=== PATIENT | male | born 1980 | race Caucasian/White ===

== ENCOUNTER 2022-08-13 06:21 | Day surgery (SDC) | payer BC, SELFPAY ==
[2022-08-13] VITALS (7 sets, daily range): BP systolic 119–140; BP diastolic 75–85; PULSE 69–75; RESP 16; TEMP 36.2–36.9; O2SAT 93–98; BMI 28.5
[2022-08-13] MEDS: LACTATED RINGERS 1000 ML 1,000 ML 100 ML IV (07:00)
--- NOTE | 2022-08-13 07:29 | PM.GSPRC ---
Operative Note Date of procedure: 08/13/22 Pre-op diagnosis: 1. Symptomatic umbilical hernia. Post-op diagnosis: 1. Incarcerated umbilical hernia containing preperitoneal fat. Type of Procedure: 1. Open umbilical hernia repair without mesh. Indications: 42-year-old male was seen in clinic for evaluation of an umbilical bulge that was noticed several years ago. Patient describes sensation of pain and discomfort with certain movements. He denied any episodes of incarceration. Patient desired to have his umbilical hernia repaired. On clinical exam he had a small umbilical bulge at the superior aspect of the umbilicus. This was reducible. Patient had discomfort with reducing this bulge. Given patient's clinical symptoms and his desire for surgical repair, an open umbilical hernia repair was recommended. The procedure was discussed in detail. The risks associated procedure including infection, bleeding, injury to intra-abdominal organs, and hernia recurrence were all discussed with the patient, and he agreed to proceed. Procedure Description: After discussing the risks and benefits of the procedure, the patient signed informed consent.? The operative site was marked and the patient was brought to the operating room and placed on the operating table in supine position.? Care was taken to pad the patient's pressure points.?? The patient was then intubated by anesthesia.?? The operative site was then prepped and draped in the usual sterile fashion.? A time-out was then performed. Local anesthetic was injected at the surgical site. A curvilinear skin incision was made with a scalpel just below umbilicus. Subcutaneous tissue was dissected with electrocautery down to the hernia sac and anterior fascia. The hernia sac was dissected off of the anterior fascia and subcutaneous fat around the fascial defect was dissected away from the fascial defect with cautery. the fascial defect was only 7 mm. The fascia surrounding the defect was strong. I elected to repair this primarily with interrupted 0-0 Nurolon stitches. Additional local anesthetic was injected into subcutaneous tissues. An umbilicus was tacked down with interrupted 3-0 Vicryl stitches. Subdermal layer was closed with interrupted sutures using 3-0 Vicryl. Skin was closed with 4-0 Monocryl using subcuticular stitch. Steri strips were applied over the incision. I then placed a folded sterile 2 x 2 and 4x4 gauze over the incision and covered it with tape. All counts were correct at the end of the case. Patient tolerated the procedure well and was transferred to PACU without any complications. Findings: 7 mm fascial defect with strong surrounding fascia. This was repaired without mesh. Anesthesia: GETA Surgeon: Jonah Manzo MD Estimated blood loss (mL): 1 Condition: stable Disposition: PACU
[2022-08-13] MEDS: CEFAZOLIN 2 GM INJ IVP (07:35)
[2022-08-13] MEDS: BUPIVACAINE 0.25% 30 ML INJECTION (07:43)
--- NOTE | 2022-08-13 07:46 | W.ANESCHARGE ---
Anesthesia Charges Start Date/Time Anesthesia Start Date: 08/13/22 Anesthesia Start Time: 07:27 Stop Date/Time Anesthesia Stop Date: 08/13/22 Anesthesia Stop Time: 08:28
--- NOTE | 2022-08-13 08:27 | W.ANESCHARGE ---
Anesthesia Charges Start Date/Time Anesthesia Start Date: 08/13/22 Anesthesia Start Time: 07:27 Stop Date/Time Anesthesia Stop Date: 08/13/22 Anesthesia Stop Time: 08:28
--- NOTE | 2022-08-13 09:04 | SUR.PHASEII ---
Pt alert and orientated. Asking to go home. Denies pain, Declines food. in room.
== END 2022-08-13 09:25 | disposition home or self-care (01) ==
PROVIDERS: PCP Family Medicine; Visit Provider Surgery
PROC: (CPT 49592; principal; 2022-08-13 07:30)
DX: K42.0 Umbilical hernia with obstruction, without gangrene (principal)
CPT/HCPCS: 49592; 00750; 00830; J0330; J0690; J1100; J1885; J2405; J2704; J3010; J3490; J7120

== ENCOUNTER 2024-06-29 12:08 | Emergency (ER) | payer BC, SELFPAY ==
--- OUTSIDE RECORDS SUMMARY | 2024-06-29 12:10 | XMS_ITS | Clinical Summary ---
Author Organization [facility] Address [address] [place] [address] Care Team Providers Care Automation Machine Operator Name Role Phone Shoaib Olivares MD Primary Care Provider Allergies No known active allergies Medications No known medications Active Problems Problem Noted Date Diagnosed Date Prediabetes 03/07/2022 Hyperlipidemia 03/06/2022 Family history of colon cancer 03/06/2022 Overview (07/10/2022): Colonoscopy 07/2022 hyperplastic polyp, repeat in 5 years Resolved Problems Problem Noted Date Diagnosed Date Resolved Date Migraine 03/11/2014 03/06/2022 Immunizations Name Administration Dates Next Due COVID-19 VACCINE SPIKEVAX (M ODERNA 50MCG/0.5ML) 12YO+ PFS 01/29/2024 COVID-19 vaccine (LivemochaBio NTech 30mcg/0.3mL) PFMDV 08/14/2020,07/19/2020 INFLUENZA, IIV3 PF (AGE >= 6 MO) 01/29/2024 Influenza RIV4 (Age 18+ Year s) PRESERV FREE 02/07/2023 Influenza, IIV3 (Age 6-35 mos) 03/11/2014,2012 Influenza, IIV4 03/22/2022,,03/10/2020, 019,02/14/2018,02/18/2017 Tdap 09/21/2017,01/11/2006 Family History Medical History Relation Name Comments Other Father neurodegenerati ve disorder Cancer Mother uterine Cancer-colon Mother Heart Disease Neg. 1 Diabetes Neg. 2 Cancer-prostate Neg. 3 Anesthesia Problem No Family History Relation Name Status Comments Father Alive Mother Alive Neg. 1 Neg. 2 Neg. 3 Social History Tobacco Use Types Packs/Day Years Used Date Smoking Tobacco: Never Smokeless Tobacco: Never Tobacco Cessation:Counseling Given: No Alcohol Use Standard Drinks/Week Comments Yes 0 (1 standard drink = 0.6 oz pur e alcohol) occasional PHQ-2 Answer Date Recorded PHQ-2 TOTAL SCORE 0 01/29/2024 Social Connections Answer Date Recorded Do you often feel lonely or isolated from those around you? 0 01/29/2024 Financial Resource Strain Answer Date R ecorded Difficulty of Paying Living Expenses 3 01/29/2024 Difficulty of Paying Living Expenses Not on file 01/29/2024 Food Insecurity Answer Date Recorded Do you worry your food will run out before you are able to buy more? 1 01/29/2024 Transportation Needs Answer Date Record ed Does lack of transportation keep you from medica l appointments? 1 01/29/2024 Does lack of transportation keep you from work, meetings or getting things that you need? 1 01/29/2024 Housing Stability Answer Date Recorded What is your housing situation today? 1 01/29/2024 Utilities Answer Date Recorded Do you have trouble paying f or utilities (for example, heat, electricity, water, phone)? 1 01/29/2024 Sex and Gender Information Value Date Recorded Sex Assigned at Not on file Legal Sex Male 5:40 AM BREAST BUFFER Gender Identity Not on file Sexual Orientation Not on file Obstetrics History Last Filed Vital Signs Vital Sign Reading Time Taken Comments Blood Pressure 132/84 01/29/2024 9:16 AM CDT Pulse 75 01/29/2024 9:16 AM CDT Temperature 36.9 C (98.5 F) 06/26/2019 1:01 PM BREAST BUFFER Respiratory Rate 16 07/06/2022 8:40 AM BREAST BUFFER Oxygen Saturation 97% 01/29/2024 9:16 AM CDT Inhaled Oxygen Concentration - - Weight 98.9 kg (218 lb) 01/29/2024 9:16 AM CDT Height 185.4 cm (6' 1) 01/29/2024 9:16 AM CDT Body Mass Index 28.76 01/29/2024 9:16 AM CDT Plan of Treatment Health Maintenance Due Date Last Done Comments BMI (ht and wt on same day) for age 18+ 01/28/2025 01/29/2024, 08/09/2022, 03/06/2022, Additional history exists Depression screening for age 12+ 01/28/2025 01/29/2024, 03/06/2022, 03/06/2022, Additional history exists Colonoscopy through age 75 07/07/202707/06, 07/06/2022, 07/06/2022 Tetanus booster 09/22/2027 09/21/2017, 01/11/2006 Lipids for age 35-44 01/28/2029 01/29/2024, 03/06/2022, 05/08/2019, Additional history exists Tdap Completed 09/21/2017, 01/11/2006 Hepatitis C screening for age 18-79 Completed 03/06/2022 COVID-19 vaccine series Completed 01/29/20 24, 02/07/2023, 03/03/2022, Additional history exists HIV for age 15-65 Completed 01/29/2024 Influenza for age 9-49 Completed 4, 02/07/2023, 03/22/2022, Additional history exists Pneumococcal series for age 6-49 Aged Out No longer eligible based on patient's age to complete this topic Procedures Procedure Name Priority Date/Time Associated Diagnosis Comments HIV 1/2 ANTIGEN/ANTIBODY FOURTH GENERATION W/RFL ([facility]) Routine 01/29/2024 10:13 AM CDT Screening for HIV (human immunodeficiency virus) LIPID PANEL W REFLEX MEASURED LDL Routine 01/29/2024 10:13 AM CDT Hyperlipidemia, unspecified hyperlipidemia type COLONOSCOPY SCREENING Routine 07/06/2022 7:32 AM BREAST BUFFER Family history of colon cancer ANTI HCV Routine 03/06/2022 9:40 AM CDT Need for hepatitis C screening test from Last 3 Months or Most Recently Relevant to Health Maintenance Results * HIV 1/2 ANTIGEN/ANTIBODY FOURTH GENERATION W/RFL ([facility]) (01/29/2024 10:13 AM CDT) HIV AG/AB, 4TH GEN NON-REACT JOSI NON-REACT JOSI [facility] Comment: HIV-1 antigen and HIV-1/HIV-2 antibodies were not detected. There is no laboratory evidence of HIV infection. PLEASE NOTE: This information has been disclosed to you from records whose confidentiality may be protected by state law. If your state requires such protection, then the state law prohibits you from making any further disclosure of the information without the specific written consent of the person to whom it pertains, or as otherwise permitted by law. A general authorization for the release of medical or other information is NOT sufficient for this purpose. For additional information please refer to http://education.Gazelle/faq/UNY945 (This link is being provided for informational/ educational purposes only.) The performance of this assay has not been clinically validated in patients less than 2 years old. Blood BLOOD SPECIMEN / Unknown 01/29/2024 10:13 AM CDT 01/29/2024 10:14 AM CDT Shoaib Olivares MD SEND OUTS Final Result [facility] [address] [place] [address], [facility] [address] [place] [address] * (ABNORMAL) LIPID PANEL W REFLEX MEASURED LDL (01/29/2024 10:13 AM CDT) CHOLESTEROL, TOTAL 291(H) <200 mg/dL [facility] HDL CHOLESTEROL 66 > OR = 40 mg/dL [facility] TRIGLYCERIDES 114 <150 mg/dL [facility] LDL-CHOLESTEROL 200(H) mg/dL (calc) [facility] Comment: LDL-C levels > or = 190 mg/dL may indicate familial hypercholesterolemia (FH). Clinical assessment and measurement of blood lipid levels should be considered for all first degree relatives of patients with an FH diagnosis. LDL Cholesterol (LDL-C) levels > or = 300 mg/dL may indicate homozygous familial hypercholesterolemia (HoFH). Untreated, these extremely high LDL-C levels can result in premature CV events and mortality. Patients should be identified early and provided appropriate interventions to reduce the cumulative LDL-C burden from . For questions about testing for familial hypercholesterolemia, please call [facility] at [phone].INFO. Maximilian Toribio, et al. J National Lipid Association Recommendations for Patient-Centered Management of Dyslipidemia: Part 1 Journal of Clinical Lipidology 2015;9(2), 129-169. Heather Eubanks. et al. (2014). Homozygous familial hypercholesterolaemia: new insights and guidance for clinicians to improve detection and clinical management. Heart Journal, 35(32), 0579-7793. Reference range: <100 Desirable range <100 mg/dL for primary prevention; <70 mg/dL for patients with CHD or diabetic patients with > or = 2 CHD risk factors. LDL-C is now calculated using the Сергей-Tj calculation, which is a validated novel method providing better accuracy than the Friedewald equation in the estimation of LDL-C. Сергей JARQUIN et al. HERLINDA. 2013;310(19): 0148-9661 (http://education.American Scientific Resources/faq/YVO750) CHOL/HDLC RATIO 4.4 <5.0 (calc) [facility] NON HDL CHOLESTEROL 225(H) <130 mg/dL (calc) [facility] Comment: Non-HDL level > or = 220 is very high and may indicate genetic familial hypercholesterolemia (FH). Clinical assessment and measurement of blood lipid levels should be considered for all first-degree relatives of patients with an FH diagnosis. For patients with diabetes plus 1 major ASCVD risk factor, treating to a non-HDL-C goal of <100 mg/dL (LDL-C of <70 mg/dL) is considered a therapeutic option. Blood BLOOD SPECIMEN / Unknown 01/29/2024 10:13 AM CDT 01/29/2024 10:14 AM CDT us Shoaib Olivares MD CHEMISTRY Final Result [facility] [address] [place] [address], [facility] [address] [facility] [place] [address] * COLONOSCOPY (07/06/2022 7:39 AM BREAST BUFFER) 07/06/2022 7:39 AM BREAST BUFFER Narrative Transcriptions Сергей Mcgee MD - 07/06/2022 8:35 AM CST Patient Name: Vasyl Cuellar Procedure Date: 07/06/2022 Gender: Male Date of : 1980 Admit Type: Outpatient Procedure: Colonoscopy Proceduralist: Сергей Mcgee MD , Leidy Buenrostro, LAURA(Nurse), Shruti Baltazar (Nurse) Referring MD: Shoaib Olivares Indications/Pre-Op Diagnosis: Screening in patient at increased risk: Colorectal cancer in mother before age 60,This is the patient's first colonoscopy Medications: Fentanyl 50 micrograms IV, Midazolam 2 mgIV, The level of sedation administered wasmoderate Procedure Description: The patient had risks, benefits and alternatives explained to andgave informed consent. The patient had a stable cardiopulmonary status and judged an adequate candidate for conscious sedation. The endoscope [id number] was passed through the anus andadvanced to the cecum, identified by appendiceal orifice and ileocecal valve.The colonoscopy was performed without difficulty. The patient toleratedthe procedure well. The quality of the bowel preparation was good. The ileocecal valve, appendiceal orifice, and rectum were photographed. Complications: No immediate complications. Estimated Blood Loss & Specimen: Estimated blood loss: none. Specimen collected - Yes and sent to Laboratory Findings: The perianal and digital rectal examinations were normal. A 2 mm polyp was found in the rectum. The polyp was sessile. Thepolyp was removed with a cold biopsy forceps. Resection and retrieval were complete. The exam was otherwise without abnormality on direct and retroflexion views. Impressions/Post-Op Diagnosis: - One 2 mm polyp in the rectum, removed with a cold biopsy forceps. Resected and retrieved. - The examination was otherwise normal on direct and retroflexionviews. Recommendation: - Patient has a contact number available for emergencies. The signsand symptoms of potential delayed complications were discussed with the patient. Return to normal activities tomorrow. Written discharge instructions were provided to the patient. - Resume previous diet. - Continue present medications. - Await pathology results. - Repeat colonoscopy in 5 years. Moderate Sedation: A time out was performed before the procedure. Moderate (conscious) sedation was administered by the endoscopy nurse and supervised bythe endoscopist. The following parameters were monitored: oxygensaturation, heart rate, blood pressure, EKG, CO2, respiratory rate, adequacy of pulmonary ventilation and reponse to care. Please refer to the patient's medical record flowsheets and nursing notes for moderate sedation details. Total physician intraservice time was 20 minutes. Сергей Mcgee MD 07/06/2022 8:35:38 AM This report has been signed electronically. Note Initiated On: 07/06/2022 7:39 AM Procedure Code(s): --- Professional --- 53511, Colonoscopy, flexible; with biopsy, single or multiple Diagnosis Code(s): --- Professional --- Z80.0, Family history of malignant neoplasmof digestive organs D12.8, Benign neoplasm of rectum CPT copyright 2020 [employer]. All rights reserved. The codes documented in this report are preliminary and upon geomagnetist reviewmay be revised to meet current compliance requirements. Scope In: 8:13:46 AM Scope Withdrawal Time 0 hours 10 minutes 22 seconds Scope Out: 8:30:09 AM us Сергей Mcgee MD PROCEDURE ORD Final Res ult * ANTI HCV (03/06/2022 9:40 AM CDT) HEPATITIS C ANTIBODY Non-React josi Non-React josi 03/06/2022 10:21 PM CDT [facility] Comment:Antibodies to HCV no t detected; does not exclude the possibility of exposure to HCV. Blood BLOOD SPECIMEN / Unknown Venipuncture / Unknown 03/06/2022 9:40 AM CDT 03/06/2022 9:40 AM CDT us Shoaib Olivares MD SEND OUTS Final Result [facility] [address] [place] [address], [place] from Last 3 Months or Most Recently Relevant to Health Maintenance Insurance [facility] NON-DE-ITS Care Teams Automation Machine Operator Relationship Specialty Start Date End Date Shoaib Olivares MD [address] [place] [address] PCP - General 12/31/05
[2024-06-29 12:12] VITALS: BP 137/75; PULSE 76; RESP 16; TEMP 36.8; O2SAT 95; BMI 28.4
--- NOTE | 2024-06-29 12:26 | ED.WOUNDLAC ---
HPI - Wound/Laceration General Time Seen by Provider: 12:26 Date Seen: 06/29/24 Chief Complaint: Laceration/Wound Stated Complaint: left index finger lac Time Seen by Provider: 06/29/24 12:26 Source: patient Mode of arrival: ambulatory Limitations: no limitations History of Present Illness HPI narrative: Patient is a very pleasant 44-year-old male with up-to-date tetanus who comes To the emergency room for evaluation regarding a laceration to his left 2nd digit or index finger. Notes that he was assisting his family member with cutting hooves of a sheet. The cutters were new and they were not expect Yeny contaminated with stool but they had been used. The blade slipped causing a laceration over the lateral aspect of the PIP. He immediately cleaned this out in the shower. He can flex and extend without difficulty and he has full sensation. He was wondering about Steri-Strips versus stitches. He is otherwise a healthy Individual. Related Data Home Medications ?Medication ?Instructions ?Recorded ?Confirmed No Known Home Medications 06/29/24 06/29/24 Allergies Allergy/AdvReac Type Severity Reaction Status Date / Time No Known Drug Allergies Allergy Verified 08/13/22 06:29 Review of Systems Status of ROS: Reports: 6 or more systems reviewed and unremarkable except as noted in History and below PFSH PFS Medical History Prediabetes ?R73.03 - Prediabetes (ICD-10) Migraine with aura ?G43.109 - Migraine with aura, not intractable, without status migrainosus (ICD-10) Chiari malformation type I ?G93.5 - Compression of brain (ICD-10) Surgical History Hx of arthroscopy of knee ?Z98.890 - Other specified postprocedural states (ICD-10) Hx of vasectomy ?Z98.52 - Vasectomy status (ICD-10) Hx of tonsillectomy ?Z90.89 - Acquired absence of other organs (ICD-10) Hx of hernia repair ?Z98.890 - Other specified postprocedural states (ICD-10) ?Z87.19 - Personal history of other diseases of the digestive system (ICD-10) Social History Smoking Status: Never smoker How often do you have a drink containing alcohol: never AUDIT-C Alcohol total score: 0 Non-prescribed substance use: denies use Caffeine: No Exam Narrative: Exam Narrative: Patient is alert and oriented very pleasant gentleman in no acute distress. Examination of his left finger shows a laceration measuring approximately 2.8 cm compromising the epidermis and dermis. I do see some subcutaneous tissue but underlying structures are not visualized. There are no foreign bodies at this time. Flexion extension is intact. Extension against resistance is intact. Distally sensation is intact and she he has good capillary refill. Const: Vital Signs, click to edit/add: Vital Signs - 24 hr 06/29/24 12:12 Temperature 98.3 F Pulse Rate [Pulse Oximeter] 76 Respiratory Rate 16 Blood Pressure [Ri ght Upper Arm] 137/75 Pulse Oximetry 95 Oxygen Delivery Me thod Room Air Documenting provider has reviewed patient's vital signs: yes Course Course ED Course: At this time I do not see any evidence of underlying structural compromise. He has a reassuring exam. Although he did rinse off this wound in the shower I am going to use lidocaine with epinephrine to numb this area and have nursing staff irrigate once again secondary to the farming nature of this incident. I do not think Steri-Strips would be appropriate given the location and the fact that the wound does gape somewhat to 2-3 mm. Reevaluation(s) Reevaluation #1: Patient was anesthetized with 1% lidocaine with epinephrine. Irrigated with normal saline. No foreign bodies were noted on a 2nd examination. Again no underlying structures visualized. Five sutures of 5 0 Ethilon were placed in interrupted fashion with good wound closure. Patient tolerated procedure well. Vital Signs Vital signs: Initial Vital Signs Temperature 98.3 F 06/29/24 12:12 Temperature Source Temporal Artery Scan 06/29/24 12:12 Pulse Rate 76 06/29/24 12:12 Respiratory Rate 16 06/29/24 12:12 Blood Pressure 137/75 06/29/24 12:12 Blood Pressure Mean 95 06/29/24 12:12 Blood Pressure Position Sitting 06/29/24 12:12 Pulse Oximetry 95 06/29/24 12:12 Oxygen Delivery Method Room Air 06/29/24 12:12 Vital Signs Temperature 98.3 F 06/29/24 12:12 Pulse Rate 76 06/29/24 12:12 Respiratory Rate 16 06/29/24 12:12 Blood Pressure 137/75 06/29/24 12:12 Pulse Oximetry 95 06/29/24 12:12 Oxygen Delivery Method Room Air 06/29/24 12:12 Temperature 98.3 F 06/29/24 12:12 Pulse Rate 76 06/29/24 12:12 Respiratory Rate 16 06/29/24 12:12 Blood Pressure 137/75 06/29/24 12:12 Pulse Oximetry 95 06/29/24 12:12 Oxygen Delivery Method Room Air 06/29/24 12:12 MDM - Wound/Laceration MDM Narrative Medical decision making narrative: 1. Laceration-suture removal in 10 days time. Monitor for infection. Because of the nature of this injury and and possible animal waist and barn yd exposure will place him on Augmentin 875 p.o. b.i.d. x5 days to prevent any infection. Tylenol ibuprofen as needed for pain. Do not get wet for 24 hours thereafter may shower but do not soak finger. Seek medical attention for worsening symptoms and signs of infection. 2. Disposition-home at this time. Discharge Plan Discharge Clinical Impression: Laceration Patient Disposition: Home, Self-Care Condition: Improved Additional Instructions: Keep this area clean and dry for 24 hours. There after you may shower and gently pat dry but please to not swim or soak finger until sutures are removed. Suture removal in 10 days time. Monitor for infection. Will start you on Augmentin which is available in our vending machine in the waiting room for prevention of infection. Follow-up for worsening symptoms. Tylenol or ibuprofen may be used for discomfort. Prescriptions: No Action No Known Home Medications Follow Up/Referrals: Shoaib Olivares MD [Primary Care Provider] - Stand Alone Forms: [employer] Info Instructions
--- OUTSIDE RECORDS SUMMARY | 2024-06-29 12:48 | XMS_ITS | Clinical Summary ---
Author Organization [employer] 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 Gender Identity Not on file Sexual Orientation Not on file Obstetrics History Last Filed Vital Signs Vital Sign Reading Time Taken Comments Blood Pressure 132/84 01/29/2024 9:16 AM CDT Pulse 75 01/29/2024 9:16 AM CDT Temperature 36.9 C (98.5 F) 06/26/2019 1:01 PM TARE WORKER Respiratory Rate 16 07/06/2022 8:40 AM TARE WORKER Oxygen Saturation 97% 01/29/2024 9:16 AM CDT [...] type COLONOSCOPY SCREENING Routine 07/06/2022 7:32 AM TARE WORKER Family history of colon cancer ANTI HCV Routine 03/06/2022 9:40 AM CDT Need for hepatitis C screening test from Last 3 Months or Most Recently Relevant to Health Maintenance Results * HIV 1/2 ANTIGEN/ANTIBODY FOURTH GENERATION W/RFL ([facility]) (01/29/2024 10:13 AM CDT) HIV AG/AB, 4TH GEN NON-REACT JOSI NON-REACT JOSI [facility] Comment: HIV-1 antigen and HIV-1/HIV-2 antibodies were [...] purpose. For additional information please refer to http://education.[employer]/faq/MXI244 (This link is being provided for informational/ educational purposes only.) The performance of this assay has not been clinically validated in patients less than 2 years old. Blood BLOOD SPECIMEN / Unknown 01/29/2024 10:13 AM CDT 01/29/2024 10:14 AM CDT Shoaib Olivares MD SEND OUTS Final Result [facility] [address] [place] [address], [facility] [address] [place] [address] * (ABNORMAL) LIPID PANEL W REFLEX MEASURED LDL (01/29/2024 10:13 AM CDT) CHOLESTEROL, TOTAL 291(H) <200 mg/dL [facility] HDL CHOLESTEROL 66 > OR = 40 mg/dL [facility] TRIGLYCERIDES 114 <150 mg/dL [facility] LDL-CHOLESTEROL 200(H) mg/dL (calc) [facility] Comment: LDL-C levels > or = 190 [...] about testing for familial hypercholesterolemia, please call [facility] at [phone]. Maximilian Toribio, et al. J National Lipid Association Recommendations for Patient-Centered Management of Dyslipidemia: Part 1 Journal of Clinical Lipidology 2015;9(2), 129-169. Heather Eubanks. et al. (2014). Homozygous familial hypercholesterolaemia: new insights and guidance for clinicians to improve detection and clinical management. Heart Journal, 35(32), 2540-1335. Reference range: <100 Desirable range <100 mg/dL for primary prevention; <70 mg/dL for patients with CHD or diabetic patients with > or = 2 CHD risk factors. LDL-C is now calculated using the Сергей-Tj calculation, which is a validated novel method providing better accuracy than the Friedewald equation in the estimation of LDL-C. Сергей JARQUIN et al. HERLINDA. 2013;310(19): 3623-5091 (http://education.[employer]/faq/SXF866) CHOL/HDLC RATIO 4.4 <5.0 (calc) [facility] NON HDL CHOLESTEROL 225(H) <130 mg/dL (calc) [facility] Comment: Non-HDL level > or = [...] us Shoaib Olivares MD CHEMISTRY Final Result [facility] [address] [place] [address], [facility] [address] [facility] [place] [address] * COLONOSCOPY (07/06/2022 7:39 AM TARE WORKER) 07/06/2022 7:39 AM TARE WORKER Narrative Transcriptions Сергей Mcgee MD - 07/06/2022 [...] adequate candidate for conscious sedation. The endoscope [id number] was passed through the anus andadvanced to [...] 7:39 AM Procedure Code(s): --- Professional --- 92583, Colonoscopy, flexible; with biopsy, single or multiple Diagnosis Code(s): --- Professional --- Z80.0, Family history of malignant neoplasmof digestive organs D12.8, Benign neoplasm of rectum CPT copyright 2020 [employer]. All rights reserved. The codes documented in this report are preliminary and upon dental technologist reviewmay be revised to meet current compliance requirements. Scope In: 8:13:46 AM Scope Withdrawal Time 0 hours 10 minutes 22 seconds Scope Out: 8:30:09 AM us Сергей Mcgee MD PROCEDURE ORD Final Res ult * ANTI HCV (03/06/2022 9:40 AM CDT) HEPATITIS C ANTIBODY Non-React josi Non-React josi 03/06/2022 10:21 PM CDT [facility] Comment:Antibodies to HCV no t detected; does not exclude the possibility of exposure to HCV. Blood BLOOD SPECIMEN / Unknown Venipuncture / Unknown 03/06/2022 9:40 AM CDT 03/06/2022 9:40 AM CDT us Shoaib Olivares MD SEND OUTS Final Result [facility] [address] [place] [address], [place] from Last 3 Months or Most Recently Relevant to Health Maintenance Insurance [facility] [place] Care Teams Environmental Professional Relationship Specialty Start Date End Date Shoaib Olivares MD [address] [place] [address] PCP - General 12/31/05
== END 2024-06-29 13:40 | disposition home or self-care (01) ==
PROVIDERS: Emergency Provider Family Medicine; PCP Family Medicine
DX: S61.211A Laceration without foreign body of left index finger without damage to nail, initial encounter (principal); W26.0XXA Contact with knife, initial encounter
CPT/HCPCS: 12001; 99283